=== PATIENT | female | born 1965 | race Caucasian/White ===

== ENCOUNTER 2018-03-14 05:23 | Emergency (ER) | payer BC ==
[~2018-03-14] VITALS: Ht 160 cm; Wt 78.0 kg
[~2018-03-14 05:23] MED LIST: ESOM20CA PO; THYROID MED PO
[2018-03-14] MEDS ORDERED: ALBUTEROL SULFATE 2.5 MG/3 ML NEBU NEB ONE (05:45)
[2018-03-14] MEDS ORDERED: IPRATROPIUM BROMIDE 0.5 MG/2.5 ML NEBU NEB ONE (05:45)
[2018-03-14] MEDS ORDERED: IPRATROPIUM BROMIDE 0.5 MG/2.5 ML NEBU ONE (05:51)
--- NOTE | 2018-03-14 05:53 | NUR ---
Pt. ambulated into ED w/ w/ c/o dry cough x3 weeks that has been worsening over last 2 days, recently finished levaquin tx and began ancef on Wednesday, no phlegm or mucus discharge, denies SOB/FRAZIER/F/C/N/V/DMD in w/ pt. 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
[2018-03-14] MEDS ORDERED: ALBUTEROL SULFATE 2.5 MG/3 ML NEBU ONE (05:55)
--- NOTE | 2018-03-14 06:32 | NUR ---
Patient discharged to home in stable conditon. Written and verbal after care instructions given. Patient verbalizes understanding of instructions. Pt. d/c w/ prescription per MD order, d/c papers signed, all belongings w/ pt., ID band removed, instructed not to drive, ambulated w/ steady gait off unit, left in private vehicle, no acute distress,
== END 2018-03-14 06:34 | disposition home or self-care (01) ==
LOC: ER 05:27
DX: J06.9 Acute upper respiratory infection, unspecified (principal); K21.9 Gastro-esophageal reflux disease without esophagitis; E03.9 Hypothyroidism, unspecified; Z88.5 Allergy status to narcotic agent; Z79.899 Other long term (current) drug therapy
CPT/HCPCS: 71045; 87400; A4663; J3590

== ENCOUNTER 2018-04-25 10:24 | Emergency (ER) | payer BC ==
[~2018-04-25] VITALS: Ht 160 cm; Wt 78.0 kg
[2018-04-25] MEDS ORDERED: HYDROCODONE/APAP 5-325MG TABLET PO ONE (10:45)
[2018-04-25] MEDS ORDERED: HYDROCODONE/APAP 5-325MG TABLET ONE (10:46)
[2018-04-25] MEDS ORDERED: NEOMY/BACITRA/POLYMYXIN B OINT UD PACKET TP ONE ×2 (11:18→11:30)
--- NOTE | 2018-04-25 11:52 | NUR ---
Patient discharged to home in stable conditon. Written and verbal after care instructions given. Patient verbalizes understanding of instructions.
== END 2018-04-25 11:53 | disposition home or self-care (01) ==
LOC: ER 10:24
DX: S80.212A Abrasion, left knee, initial encounter (principal); S69.91XA Unspecified injury of right wrist, hand and finger(s), initial encounter; K21.9 Gastro-esophageal reflux disease without esophagitis; E03.9 Hypothyroidism, unspecified; Z88.5 Allergy status to narcotic agent; Z79.899 Other long term (current) drug therapy; W01.0XXA Fall on same level from slipping, tripping and stumbling without subsequent striking against object, initial encounter; Y93.89 Activity, other specified; Y92.89 Other specified places as the place of occurrence of the external cause; Y99.8 Other external cause status
CPT/HCPCS: 73130; A4217; A4663